=== PATIENT | male | born 2000 | race Two or more races ===

== ENCOUNTER 2020-02-07 18:02 | Emergency (ER) | payer BC, MEDICAID, OTHER ==
[~2020-02-07] VITALS: Ht 185.4 cm; Wt 152.0 kg
--- NOTE | 2020-02-07 18:40 | NUR ---
PT IN HOSPITAL GOWN. PT ON CARDIAC AND VITALS MONITORS. LAB HAS BEEN IN TO SEE PT. PT RESTING CALMLY IN BED AT THIS TIME, WITH FAMILY AT BEDSIDE.
[2020-02-07 18:46] LABS: BASOPHILS # (AUTO) 0.12 x10^3/uL (0-0.3); BASOPHILS % (AUTO) 1 % (0-1); EOSINOPHILS # (AUTO) 0.06 x10^3/uL (0-0.8); EOSINOPHILS % (AUTO) 1 % (1-7); LYMPHOCYTES # (AUTO) 1.95 x10^3/uL (1-6.1); LYMPHOCYTES % (AUTO) 22 % (22-44); MD NO; MEAN CORPUSCULAR HEMOGLOBIN 29.8 pg (27.5-34.5); MEAN CORPUSCULAR HGB CONC 32.9 g/dL (33.2-36.2); MEAN CORPUSCULAR VOLUME 90.7 fL (81-97); MEAN PLATELET VOLUME 8.9 fL (7.4-10.4); MONOCYTES # (AUTO) 0.62 x10^3/uL (0-1.4); MONOCYTES % (AUTO) 7 % (2-9); NEUTROPHILS # (AUTO) 6.16 x10^3/uL (1.8-8.0); NEUTROPHILS % (AUTO) 69 % (42-75); PLATELET COUNT 222 x10^3/uL (130-400); RED BLOOD COUNT 5.29 x10^6/uL (4.38-5.82); RED CELL DISTRIBUTION WIDTH 14.4 % (9.4-14.8)
--- NOTE | 2020-02-07 18:49 | NUR ---
PT LAYING IN BED, RESPIRATIONS EVEN AND UNLABORED, NO SIGNS OF DISTRESS. PT STATES "I'M JUST EXAHUSTED. I ONLY DRANK 16OZ OF WATER, RUNNING ON 4-5 HOURS OF SLEEP. I'VE BEEN ON THE KETO DIET FOR A LITTLE OVER A MONTH NOW." PT CONNECTED TO CARDIAC, BP AND O2 MONITORS. BEDRAILS UP, CALL LIGHT IN REACH, FATHER AT BEDSIDE. PT UPDATED ON POC, ALL NEEDS MET AT THIS TIME.
[2020-02-07 18:56] LABS: ALANINE AMINOTRANSFERASE 40 U/L (12-78); ALBUMIN 3.8 g/dL (3.4-5.0); ANION GAP 5 mmol/L (5-15); CALCIUM 8.6 mg/dL (8.5-10.1); CHLORIDE 109 mmol/L (98-107)
[2020-02-07 18:59] LABS: ALKALINE PHOSPHATASE 83 U/L (45-117); BILIRUBIN,TOTAL 0.7 mg/dL (0.2-1.0); TOTAL PROTEIN 7.1 g/dL (6.4-8.2)
[2020-02-07 19:45] VITALS: BP 125/83
--- NOTE | 2020-02-07 19:46 | NUR ---
PT LAYING IN BED, EYES CLOSED, RESPIRATIONS EVEN AND UNLABORED, ALL NEEDS MET AT THIS TIME. CHART UP FOR RECHECK.
== END 2020-02-07 20:25 | disposition home or self-care (01) ==
LOC: ED 18:28
DX: R42 Dizziness and giddiness (principal); R55 Syncope and collapse; R53.1 Weakness; R07.9 Chest pain, unspecified; R94.31 Abnormal electrocardiogram [ECG] [EKG]
CPT/HCPCS: 36415; 80053; 82962; 83036; 85025; 93005; 99284